=== PATIENT | female | born 1980 | race Hispanic/Latino ===

== ENCOUNTER 2016-07-04 03:49 | Inpatient (IN) | payer OTHER ==
[2016-07-04 04:43] VITALS: BMI 26.3
[2016-07-04 05:30] LABS: BASO % 0.2 % (0.0-2.0); EOS % 0.2 % (0.0-4.0); HEMATOCRIT 39.8 % (34.0-47.0); LYMPH # 3.1 K/uL (1.0-4.3); LYMPH % 25.6 % (20.0-40.0); MEAN CELL VOLUME 92.9 fl (81.0-99.0); MEAN CORPUSCULAR HEMOGLOBIN 31.1 pg (27.0-31.0); MEAN CORPUSCULAR HGB CONC 33.5 g/dL (33.0-37.0); MEAN PLATELET VOLUME 10.6 fl (7.2-11.7); MONO # 0.8 K/uL (0.0-0.8); MONO % 6.3 % (0.0-10.0); NEUT # 8.1 K/uL (1.8-7.0); NEUT % 67.7 % (50.0-75.0); NRBC % 0.1 % (0.0-0.0); RED CELL DISTRIBUTION WIDTH 13.4 % (11.5-14.5)
[2016-07-04 06:37] VITALS: BP 102/69; PULSE 85; RESP 20; TEMP 98.5; O2SAT 100
--- NOTE | 2016-07-04 07:14 | OBADHP ---
Datetime: 07/04/2016 06:42 Admit Comment, IP Provider: 36 y.o. admitted at 4:20 a.m. after rapid onset of labor; SVE on ad mission 7/90%/0, FHT category 1. membranes intact. GBS negaitive . Denies PVB, ROM, . Reports + movement. IV access established and routine bloods drawn. Pt is coping well with ctx; and d oula with pt. After initial 20 CFM strip, can do Intermittent Ausculation. Positioning in hands/knees position. Pt is afebrile and VSS. Dr. Mendoza notified of pt admission and status. Anticipate . Pelvic Type - PN: Adequate Extremities - PN: Normal Abdomen - PN: Normal Back - PN: Normal Breast - PN: Normal Lungs - PN: Normal Heart - PN: Normal Thyroid - PN: Normal Neurologic - PN: Normal HEENT - PN: Normal General - PN: Normal Weight - Estimated: 3912 Presentation-Admit: Vertex IP Fetus A Comments: reassuring status; fetus has had low baseline during FHR - Baseline A Provider: 115 Membranes, Provider: Intact Contraction Comments Provider: q 2-3 x 60-90" Comments, ACOG Physical Exam: ROS denies H/A, dysuria, visual disturbances, PVB, fever, LOF. Gestation - Est Wks by US: 40+4 Vital Signs Provider: Reviewed; Within Normal Limits IP Chief Complaint: Uterine contractions NICHD Variability Prov Fetus A: Moderate 6-25bpm NICHD Accel Fetus A IP Provider: 15X15 FHR Category Provider Fetus A: Category I NICHD Decel Fetus A IP Provider: None Dilatation, Provider: 7 Effacement, Provider: 90 Station, Provider: 0 Genitourinary Exam: Normal DTRs - PN: Normal EGA AdmitDate IP: 40.4 IP Adm Impression: Term, intrauterine ; Active labor; Intact Membranes IP Admit Plan: Admit to unit; Initiate labor protocol Datetime: 07/04/2016 06:41 IP Hx Assessment: The History has been Reviewed and is Current
--- NOTE | 2016-07-04 07:46 | OBDS ---
DELIVERY PERSONNEL Delivery Doctor: Elina Villegas CNM [place] Handler: Emelia Salas RN MATERNAL INFORMATION Delivery Anesthesia: Local Medications in Delivery: Pitocin Estimated Blood Loss (ml): 300 Placenta Cultured: No Maternal Complications: Precipitous Labor (<3hrs) Provider Comments: Delivery Note: After SROM at 4:53 a.m., of live male in hands/knees position at 5:05 a.m., shoulders deliver ed atraumatically and with ease, infant vigorous, oropharynx bulb syringed, passed bewteen mot her's legs and mother received baby into her arms. Lusty cry, dried, stimulated, good color and tone. Apgars 9/9. After pulsation in cord ceased, cord was doubly clamped and cut, cord bloods collected. Placenta delivered complete and intact with 3V cord in Constance position at 5:16 a.m. Inspection reveal ed first degree perineal laceration repaired under local anesthesia with 1% lidocain and 2-0 chromic suture, good hemostatasis and tissue approximation acheived. Cervix, rectum, intact. + hemorrhoids. I nfant . EBL 300 ccs. 20 mu pitocin in 1000 cc LR hung for increased clots being expresse d with fundal pressure. Baby weighed 8'10". and mother entered recovery stage in stable condit ion. LABOR SUMMARY EDC: 06/30/2016 00:00 No. Babies in Womb: 1 Attempted: No Labor Anesthesia: None LABOR INFORMATION Reason for Induction: Not Applicable Onset of Labor: 07/04/2016 02:30 Complete Dilatation: 07/04/2016 05:00 Group B Beta Strep: Negative Steroids Given: None Reason Steroids Not Administered: Not Applicable MEMBRANES Membranes Rupture Method: Spontaneous Rupture of Membranes: 07/04/2016 04:53 Length of Rupture (hrs): 0.20 Amniotic Fluid Color: Clear Amniotic Fluid Amount: Moderate Amniotic Fluid Odor: Normal STAGES OF LABOR Stage 1 hrs: 2 Stage 1 min: 30 Stage 2 hrs: 0 Stage 2 min: 5 Stage 3 hrs: 0 Stage 3 min: 11 Total Time in Labor hrs: 2 Total Time in Labor min: 46 VAGINAL DELIVERY Episiotomy: None Laceration Extension: First Degree Laceration Type: Perineal Other Laceration: 2.[address] Laceration Repair: Yes Laceration Repair Note: 1% lidocaine for 1st degree laceration repair with 2-0 chromic suture. good hemostatsis and tissue approximation acheived. pt tolerated procedure well. Initial Vag Sponge Count: 5 Final Vag Sponge Count: 5 Initial Vag Sharps Count: 3 Final Vag Sharps Count: 3 Sponge Count Correct: Yes Sharps Count Correct: Yes Count Comment: count correct BABY A INFORMATION Infant Delivery Date/Time: 07/04/2016 05:05 Method of Delivery: Vaginal Born in Route : No : N/A Forceps: N/A Vacuum Extraction: N/A Shoulder Dystocia : No SHOULDER DYSTOCIA BABY A Delivery Date/Time: 07/04/2016 05:05 PRESENTATION/POSITION BABY A Presentation: Cephalic Cephalic Presentation: Vertex PLACENTA INFORMATION BABY A Placenta Delivery Time : 07/04/2016 05:16 Placenta Method of Delivery: Spontaneous Placenta Status: Delivered SCORES BABY A Heart Rate 1 min: >100 bpm Resp Effort 1 min: Good Cry Reflex Irritability 1 min: Cough or Sneeze or Pulls Away Muscle Tone 1 min: Active Motion Color 1 min: Body Robinson, Extremities Blue Resuscitation Effort 1 min: Tactile Stimulation SCORE 1 MIN: 9 Heart Rate 5 min: >100 bpm Resp Effort 5 min: Good Cry Reflex Irritability 5 min: Cough or Sneeze or Pulls Away Muscle Tone 5 min: Active Motion Color 5 min: Body Robinson, Extremities Blue Resuscitation Effort 5 min: N/A SCORE 5 MIN: 9 INFORMATION BABY A Gestational Age at Delivery: 40.4 Gestational Status: Term Infant Outcome : Liveborn Infant Condition : Stable Sex: Male IDENTIFICATION/MEDS BABY A ID Band Number: [id number] ID Band Location: Left Leg; Left Arm WEIGHT/LENGTH BABY A Infant Birthweight (gms): 3920 Infant Weight (lb): 8 Infant Weight (oz): 10 CORD INFORMATION BABY A No. Cord Vessels: 3 Nuchal Cord : N/A Cord Blood Taken: Yes Suction: Mouth; Nose ASSESSMENT BABY A Complications: None Physical Findings at Delivery: Within Normal Limits Respirations: Appears Normal Hogshead Inspector/ALS Called : No Care By: Elina Villegas CNM Transferred To: Remains with Mother
[2016-07-04] MEDS ORDERED: Benzocaine/Menthol SPRAY TOP PRN ×2 (08:30→09:06)
[2016-07-04] MEDS ORDERED: Oxycodone/Acetaminophen 5/325 mg Tab PO PRN ×2 (08:30→09:06)
--- NOTE | 2016-07-04 08:54 | OBHP ---
Datetime: 07/04/2016 06:42 IP Adm Impression: Term, intrauterine ; Active labor; Intact Membranes IP Admit Plan: Admit to unit; Initiate labor protocol Admit Comment, IP Provider: 36 y.o. admitted at 4:20 a.m. after rapid onset of labor; SVE on ad mission 7/90%/0, FHT category 1. membranes intact. GBS negaitive . Denies PVB, ROM, . Reports + movement. IV access established and routine bloods drawn. Pt is coping well with ctx; and d oula with pt. After initial 20 CFM strip, can do Intermittent Ausculation. Positioning in hands/knees position. Pt is afebrile and VSS. Dr. Mendoza notified of pt admission and status. Anticipate . Pelvic Type - PN: Adequate Extremities - PN: Normal Abdomen - PN: Normal Back - PN: Normal Breast - PN: Normal Lungs - PN: Normal Heart - PN: Normal Thyroid - PN: Normal Neurologic - PN: Normal HEENT - PN: Normal General - PN: Normal Weight - Estimated: 3912 Presentation-Admit: Vertex IP Fetus A Comments: reassuring status; fetus has had low baseline during FHR - Baseline A Provider: 115 Membranes, Provider: Intact Contraction Comments Provider: q 2-3 x 60-90" Comments, ACOG Physical Exam: ROS denies H/A, dysuria, visual disturbances, PVB, fever, LOF. Gestation - Est Wks by US: 40+4 EGA AdmitDate IP: 40.4 Vital Signs Provider: Reviewed; Within Normal Limits IP Indication for Induction: Not Applicable IP Chief Complaint: Uterine contractions NICHD Variability Prov Fetus A: Moderate 6-25bpm NICHD Accel Fetus A IP Provider: [id number] FHR Category Provider Fetus A: Category I NICHD Decel Fetus A IP Provider: None Dilatation, Provider: 7 Effacement, Provider: 90 Station, Provider: 0 Genitourinary Exam: Normal DTRs - PN: Normal Datetime: 07/04/2016 06:41 IP Hx Assessment: The History has been Reviewed and is Current
[2016-07-04] MEDS ORDERED: Prenatal Multivit/Folic Acid/Iron Tab PO SCH (09:00)
[2016-07-04] MEDS ORDERED: Lansinoh for Breast Feeding Mothers TP ONE (14:57)
[2016-07-05 06:51] LABS: BASO % 0.2 % (0.0-2.0); EOS # 0.1 K/uL (0.0-0.7); EOS % 0.5 % (0.0-4.0); HEMATOCRIT 36.5 % (34.0-47.0); LYMPH # 3.4 K/uL (1.0-4.3); LYMPH % 24.6 % (20.0-40.0); MEAN CELL VOLUME 92.1 fl (81.0-99.0); MEAN CORPUSCULAR HGB CONC 33.6 g/dL (33.0-37.0); MEAN PLATELET VOLUME 10.3 fl (7.2-11.7); MONO # 1.1 K/uL (0.0-0.8); MONO % 7.7 % (0.0-10.0); NEUT # 9.1 K/uL (1.8-7.0); NRBC % 0.1 % (0.0-0.0); RED CELL DISTRIBUTION WIDTH 13.4 % (11.5-14.5); WHITE BLOOD COUNT 13.7 K/uL (4.8-10.8)
[2016-07-05] MEDS: Prenatal Multivit/Folic Acid/Iron Tab PO SCH (09:42)
[2016-07-05] MEDS ORDERED: Lansinoh for Breast Feeding Mothers TP PRN (20:40)
--- NOTE | 2016-07-05 21:44 | OBPPN ---
Datetime: 07/05/2016 21:24 PP Pain Prov: Within normal limits PP Pain Prov comment: in good spirits, not depressed. PP Nausea Prov: Denies PP Flatus Prov: Yes PP BM Prov: Yes PP Nausea Prov comment: denies H/A, visual disturbances, Abd pain PP Flatus Prov comment: some difficulty with due to possible tongue tie PP BM Prov comment: Baby in NICU for phototherapy PP Breasts Prov: Normal PP Heart Prov: Normal PP Lungs Prov: Normal PP Abdomen/Uterus Prov: Normal PP Lochia Prov: Normal PP Vulva/Perineum Prov: Normal PP CVA Tenderness Prov: Normal PP Extremities Prov: Normal PP Progress Prov: Normal PP Comments Phys Exam Prov: Pt doing well , reports ambulating, voiding without difficulty. Denies h /a, abdominal pain, dysuria, or visual disturbances. Taking motrin for afterbirth cramping. Had b.m. Having some difficulty with nursing due to possib le tongue tie; using lansinoh on nipples; seeing splunk consultant in hospital. and pumping; baby is in NICU for phototherapy tx of hyperbilirubinemia. Breasts soft, no redness, or lumps, left nipple cracked. Heart: RSR, no murmurs. Lungs: CTABL CVAT: negative Abdomen soft, non tender. Fundus U/2. Lochia WNL, light. perineum: stitches intact, no hematoma Extremeties; no edema, no calf redness or tenderness, negative Honey's sign. PP Impression Prov: Normal progression; difficulties PP Plan Prov: Continue present management; consult PP Progress Note Prov: Assessment: Normal PP day 1 s/p afebrile, VSS Not depressed. Plan: Continue consultation with splunk consultant Breastfeed q 2-3 hours, pump if necessary if misses feedings; lansinoh to nipples. Discussed pp self care, warning signs, , activity, perineal care, sitz bath, sx of PP D Will follow up with [facility] all operator outpatient as per house peds recommendations. Will schedule pp visit with casino manager at 2 and 6 weeks Contact # for casino manager given. IP PP Procedures: None Vital Signs Provider PP: Reviewed; Within Normal Limits Vital Signs Provider Details PP: Cracked left nipple
[2016-07-06] MEDS: Prenatal Multivit/Folic Acid/Iron Tab PO SCH (09:31)
== END 2016-07-06 21:50 | disposition home or self-care (01) | DRG 775 ==
LOC: H.EROB2 03:49 → H.L&D 04:52 → H.OB/GYN 09:03
PROVIDERS: ADMIT Midwife; ATTEND Midwife
PROC: 10E0XZZ Delivery of Products of Conception, External Approach (ICD-10-PCS; principal; 2016-07-04)
PROC: 4A1HXCZ Monitoring of Products of Conception, Cardiac Rate, External Approach (ICD-10-PCS; 2016-07-04)
DX: O48.0 Post-term pregnancy (principal); O62.3 Precipitate labor; O70.0 First degree perineal laceration during delivery; Z37.0 Single live birth; Z3A.40 40 weeks gestation of pregnancy